=== PATIENT | male | born 1985 | race African-American/Black ===

== ENCOUNTER 2022-03-29 15:45 | Emergency (ER) | payer SELFPAY ==
[~2022-03-29] VITALS: Ht 188 cm; Wt 75.0 kg
[2022-03-29 16:30] VITALS: BP 114/76
== END 2022-03-29 17:31 | disposition left against medical advice (07) ==
LOC: EDBD 15:45 → ER 15:45
DX: J45.901 Unspecified asthma with (acute) exacerbation (principal); F14.10 Cocaine abuse, uncomplicated; F19.10 Other psychoactive substance abuse, uncomplicated; F17.290 Nicotine dependence, other tobacco product, uncomplicated
CPT/HCPCS: 99283; Z7610